=== PATIENT | female | born 1990 | race American Indian/Alaskan Native ===

== ENCOUNTER 2018-08-29 12:36 | Emergency (ER) | payer OTHER, MEDICAID ==
--- NOTE | 2018-08-29 13:03 | Emergency Department Report ---
Blank Doc - Documentation Documentation: This is a 27-year-old female that presents with acute headache. Denies any head injuries or trauma. Denies thunderclap head or worst headache. This initial assessment/diagnostic orders/clinical plan/treatment(s) is/are subject to change based on patient's health status, clinical progression and re- assessment by fellow clinical providers in the ED. Further treatment and workup at subsequent clinical providers discretion. Patient/guardians urged not to elope from the ED as their condition may be serious if not clinically assessed and managed. Initial orders include: 1- Patient sent to [facility] for further evaluation and treatment 2- CT head
[2018-08-29] MEDS ORDERED: MORPHINE IV ONE (13:38)
[2018-08-29] MEDS ORDERED: NACL 0.9% 1000 ML 1,000 ML IV ONE (13:38)
[2018-08-29] MEDS ORDERED: TORADOL IV ONE (13:38)
[2018-08-29] MEDS ORDERED: ZOFRAN IV ONE (13:38)
--- NOTE | 2018-08-29 14:53 | Cat Scan Report ---
CT scan of head without IV contrast: History: Headache. Findings a ventricles are normal in size and midline in position. No evidence of acute ischemia, hemorrhage or mass. No extra-axial fluid collection. Normal brainstem and cerebellum. Normal sinuses and mastoid air cells. Impression: No acute intracranial abnormality.
--- NOTE | 2018-08-29 15:23 | Emergency Department Report ---
ED Headache HPI - General Chief Complaint: Headache Stated Complaint: SEVERE HEADACHE/VOMITING Time Seen by Provider: 08/29/18 13:01 - History of Present Illness Initial Comments: Patient is a 27-year-old female who is presenting with 2-3 days of severe headache. Patient states is a pounding headache in the frontal region. States it does radiate to the back of her head. Patient states this has been constant for the last 3 days. She states that her freedoms in her headaches in the last month has been increasing. Patient does have a history of headaches like this is been quite some time. Patient denies a formal diagnosis of migraines and also states she's never had his CT head scan. Patient states she has nausea with vomiting and light sensitivity. Patient states occasionally she will have some excessive tearing from the eyes. Allergies/Adverse Reactions: Allergies No Known Allergies Allergy (Unverified 03/22/13 09:16) Home Medications: Ambulatory Orders Butalb/Acetamin/Caff 50-325-40 [Fioricet] 1 tab PO Q6HR PRN #12 tab 08/29/18 predniSONE [Deltasone] 20 mg PO QDAY #5 tab 08/29/18 ED Review of Systems ROS: Stated complaint: SEVERE HEADACHE/VOMITING Other details as noted in HPI Comment: All other systems reviewed and negative ED Past Medical Hx - Past Medical History Previous Medical History?: No Additional medical history: Vaginal delivery x 2 - Surgical History Additional Surgical History: x 1, - Social History Smoking Status: Never Smoker Substance Use Type: Alcohol, Marijuana - Medications Home Medications: Home Medications Medication Instructions Recorded Confirmed Last Taken Type Butalb/Acetamin/Caff 50-325-40 1 tab PO Q6HR PRN #12 tab 08/29/18 Unknown Rx [Fioricet] predniSONE [Deltasone] 20 mg PO QDAY #5 tab 08/29/18 Unknown Rx ED Physical Exam - General Limitations: No Limitations General appearance: alert, in distress (secondary to pain) - Head Head exam: Present: atraumatic, normocephalic - Eye Eye exam: Present: normal appearance - ENT ENT exam: Present: mucous membranes moist - Neck Neck exam: Present: normal inspection - Respiratory Respiratory exam: Present: normal lung sounds bilaterally. Absent: respiratory distress, wheezes, rales - Cardiovascular Cardiovascular Exam: Present: regular rate, normal rhythm. Absent: systolic murmur, diastolic murmur, rubs, gallop - GI/Abdominal GI/Abdominal exam: Present: soft, normal bowel sounds. Absent: distended, tenderness, guarding - Extremities Exam Extremities exam: Present: normal inspection - Back Exam Back exam: Present: normal inspection - Neurological Exam Neurological exam: Present: alert, oriented X3 - Psychiatric Psychiatric exam: Present: normal affect, normal mood - Skin Skin exam: Present: warm, dry, intact, normal color. Absent: rash ED Course Vital Signs 08/29/18 13:00 Temperature 97.9 F Pulse Rate 63 Respiratory 18 Rate Blood Pressure 154/97 O2 Sat by Pulse 100 Oximetry ED Medical Decision Making - Radiology Data [facility] [address] [place] [address] Cat Scan Report Signed Patient: CHIQUIS HUNTER MR# : [id number] : 1990 Acct:[id number] Age/Sex: 27 / F ADM Date: 08/29/18 Loc: ED Attending Dr: Ordering Physician: DIMITRIS PARRISH NP Date of Service: 08/29/18 Procedure(s): CT head/brain wo con Accession Number(s): [id number] cc: DIMITRIS PARRISH NP CT scan of head without IV contrast: History: Headache. Findings a ventricles are normal in size and midline in position. No evidence of acute ischemia, hemorrhage or mass. No extra-axial fluid collection. Normal brainstem and cerebellum. Normal sinuses and mastoid air cells. Impression: No acute intracranial abnormality. Transcribed By: PTP Dictated By: VINCE CARTER MD Electronically Authenticated By: VINCE CARTER MD Signed Date/Time: 08/29/18 143 DD/ 143 TD/TT: - Medical Decision Making Patient's headache did improve slightly with pain meds and nausea meds and fluids. Patient does give additional history that she has had bouts of headaches similar to this in the past. Patient likely has cluster headaches. Patient referred to neurology and be discharged home. Critical care attestation.: If time is entered above; I have spent that time in minutes in the direct care of this critically ill patient, excluding procedure time. ED Disposition Clinical Impression: Cluster headache Qualifiers: Headache chronicity pattern: episodic headache Intractability: intractable Qualified Code(s): G44.011 - Episodic cluster headache, intractable Disposition: DC-01 TO HOME OR SELFCARE Is pt being admited?: No Does the pt Need Aspirin: No Condition: Stable Instructions: Cluster Headache (ED) Referrals: PRIMARY CARE, [Primary Care Provider] - 3-5 Days Time of Disposition: 15:21
[2018-08-29 15:45] VITALS: BP 125/67
== END 2018-08-29 15:45 | disposition home or self-care (01) ==
LOC: ED 12:36
DX: G44.011 Episodic cluster headache, intractable (principal); F12.10 Cannabis abuse, uncomplicated
CPT/HCPCS: 36415; 70450; 84703; 96361; 96374; 96375; 99284; J1885; J2270; J2405; J7030

== ENCOUNTER 2019-03-06 01:23 | Emergency (ER) | payer MEDICAID, OTHER ==
[2019-03-06 01:28] VITALS: BP 159/92
--- NOTE | 2019-03-06 02:43 | Emergency Department Report ---
Eye Injury/Foreign Body - HPI Duration: 1 Day Eye Location: Bilateral Severity: Moderate Tetanus Status: Unknown Eye Symptoms: Eye Pain: Yes, Blurred Vision: Yes, Eye Redness: Yes, Grinding/Hammering Metal: No, Used Eye Protection: No, Contact Lens Use: No, Recalls Injury: No, Photophobia: Yes Other History: This is a 28-year-old female that presents to the ER with burning sensation, redness, and photopobia to bilateral eyes. Patient states she woke up with symptoms. She denies wearing contacts or recent injury. She reports similar symptoms 2 months ago that lasted for 24 hours and resolved. She reports taking benadryl with no improvement of symptoms. ED Review of Systems ROS: Stated complaint: PAIN IN BOTH EYES Other details as noted in HPI Constitutional: denies: chills, fever Eyes: eye pain (bilaterally), vision change (blurry vision bilaterally). denies: eye discharge ENT: denies: ear pain, throat pain Respiratory: denies: cough, shortness of breath, wheezing Cardiovascular: denies: chest pain, palpitations Gastrointestinal: denies: abdominal pain, nausea, diarrhea Skin: denies: rash, lesions Neurological: denies: headache, weakness, paresthesias Psychiatric: denies: anxiety, depression ED Past Medical Hx - Past Medical History Previous Medical History?: No Additional medical history: Vaginal delivery x 2 - Surgical History Past Surgical History?: No Additional Surgical History: x 1, - Social History Smoking Status: Never Smoker Substance Use Type: Alcohol, Marijuana - Medications Home Medications: Home Medications Medication Instructions Recorded Confirmed Last Taken Type Butalb/Acetamin/Caff 50-325-40 1 tab PO Q6HR PRN #12 tab 08/29/18 Unknown Rx [Fioricet] predniSONE [Deltasone] 20 mg PO QDAY #5 tab 08/29/18 Unknown Rx Erythromycin [Erythromycin Ophth 10 applic OP QID 5 Days #1 tube 03/06/19 Unknown Rx Oint] Eye Injury Exam - Exam General: Vital signs noted. No distress. Alert and acting appropriately. - Visual Acuity Bilateral Vision Acuity Degree: 20/30 Eye Exam: Left Injection, Both Chemosis, Both EOMI, Both Fluorescein Uptake (negative clue cells or abrasion), Both Photophobia, Neither Abnormal Pupil, Neither Eye Foreign Body, Neither Lid Foreign Body, Neither Mucous Discharge, Neither Purulent Discharge, Neither Fluorescein Uptake (slit lamp), Neither Cell/Flare (slit lamp), Neither Corneal Edema ED Course Vital Signs 03/06/19 01:25 Temperature 98.6 F Pulse Rate 100 H Respiratory 18 Rate Blood Pressure 159/92 O2 Sat by Pulse 100 Oximetry ED Medical Decision Making - Medical Decision Making Patient was examined by me. Patient is nontoxic appearing and stable. Vitals are normal. Attempt to check eye pressure but unable due to tonopen malfunctioning. Both eyes evaluated by flor oquendo after staining with no signs of corneal abrasion or foreign object. Irrigated both eyes with normal saline. Patient reports improvement of pain after tetracaine drops. Start erythromycin ointment for conjunctivitis. Referral to ophthalmology for follow-up in 24 hours. Instructed to return to the ER with worsening symptoms. Patient discharged home in stable condition. Critical care attestation.: If time is entered above; I have spent that time in minutes in the direct care of this critically ill patient, excluding procedure time. ED Disposition Clinical Impression: Pain of both eyes Disposition: DC-01 TO HOME OR SELFCARE Is pt being admited?: No Does the pt Need Aspirin: No Condition: Stable Instructions: Conjunctivitis (ED) Additional Instructions: Follow up with ophthalmology in 24 hours. Prescriptions: Erythromycin [Erythromycin Ophth Oint] 10 applic OP QID 5 Days #1 tube Referrals: [facility] [Provider Group] - 3-5 Days [facility] [Provider Group] - 3-5 Days POWER ASCENCIO MD [Staff Physician] - 3-5 Days Forms: Work/School Release Form(ED) Time of Disposition: 03:35
[2019-03-06] MEDS ORDERED: TETRACAINE 0.5% OPHTH SOLN 4ML OU ONE (02:44)
[2019-03-06] MEDS ORDERED: FLUORESCEIN 1 MG STRIP OP ONE (02:44)
== END 2019-03-06 04:55 | disposition home or self-care (01) ==
LOC: ED 01:23
DX: H57.11 Ocular pain, right eye (principal); H57.12 Ocular pain, left eye; H53.143 Visual discomfort, bilateral